=== PATIENT | female | born 2000 | race American Indian/Alaskan Native ===

== ENCOUNTER 2021-02-23 13:44 | Observation (INO) | payer MEDICAID ==
[2021-02-23] MEDS ORDERED: ACETAMINOPHEN 500 MG TAB PO ONE (14:01)
--- NOTE | 2021-02-23 14:04 | Emergency Department Report ---
ED Abdominal Pain HPI - General Chief Complaint: Abdominal Pain Stated Complaint: ABDOMINAL CRAMPS Time Seen by Provider: 02/23/21 13:54 Source: patient Mode of arrival: Ambulatory Limitations: No Limitations - History of Present Illness Initial Comments: 21-year-old female, , currently (unknown how far along) presents to ED with abdominal pain x3 days. Patient reports suprapubic pain x3 days. She denies any vomiting or diarrhea. She does report nausea. Patient reports fever last night. Patient reports urinary frequency and back pain. She denies any dysuria or vaginal discharge. Contrary to triage note, patient denies any vaginal bleeding. She denies any right lower quadrant pain. Patient denies any cough or shortness of breath. Patient does not currently have an RELATIONS SPECIALIST. MD Complaint: abdominal pain -: days(s) (3) Location: suprapubic Radiation: none Migration to: no migration Severity: moderate Severity scale (0 -10): 0 Quality: cramping Consistency: constant Improves With: nothing Worsens With: nothing Associated Symptoms: nausea, fever. denies: vomiting, diarrhea, dysuria - Related Data Previous Rx's Medication Instructions Recorded Last Taken Type Ciprofloxacin HCl [Cipro] 500 mg PO BID #20 tablet 07/27/13 08/02/13 20:00 Rx Ibuprofen [Motrin] 800 mg PO Q8H PRN #20 tablet 07/27/13 08/02/13 20:00 Rx Phenazopyridine [Pyridium] 200 mg PO TID #6 tablet 07/27/13 08/02/13 20:00 Rx Cefuroxime Oral Susp [Ceftin Oral 500 mg PO Q12H #14 ml 08/03/13 Unknown Rx Susp] Ibuprofen [Motrin] 400 mg PO Q8H PRN #12 tablet 08/03/13 Unknown Rx Allergies Allergy/AdvReac Type Severity Reaction Status Date / Time No Known Allergies Allergy Verified 08/03/13 15:56 ED Review of Systems ROS: Stated complaint: ABDOMINAL CRAMPS Other details as noted in HPI Comment: All other systems reviewed and negative Constitutional: fever Respiratory: denies: cough, shortness of breath Gastrointestinal: abdominal pain, nausea. denies: vomiting, diarrhea Genitourinary: frequency. denies: dysuria, discharge ED Past Medical Hx - Social History Smoking Status: Never Smoker Substance Use Type: None - Medications Home Medications: Home Medications Medication Instructions Recorded Confirmed Last Taken Type Ciprofloxacin HCl [Cipro] 500 mg PO BID #20 tablet 07/27/13 08/03/13 08/02/13 20:00 Rx Ibuprofen [Motrin] 800 mg PO Q8H PRN #20 tablet 07/27/13 08/03/13 08/02/13 20:00 Rx Phenazopyridine [Pyridium] 200 mg PO TID #6 tablet 07/27/13 08/03/13 08/02/13 20:00 Rx Cefuroxime Oral Susp [Ceftin Oral 500 mg PO Q12H #14 ml 08/03/13 Unknown Rx Susp] Ibuprofen [Motrin] 400 mg PO Q8H PRN #12 tablet 08/03/13 Unknown Rx ED Physical Exam - General Limitations: No Limitations General appearance: alert, in no apparent distress - Head Head exam: Present: atraumatic, normocephalic - Eye Eye exam: Present: normal appearance, EOMI - ENT ENT exam: Present: mucous membranes moist - Neck Neck exam: Present: normal inspection - Respiratory Respiratory exam: Present: normal lung sounds bilaterally. Absent: respiratory distress - Cardiovascular Cardiovascular Exam: Present: normal rhythm, tachycardia - GI/Abdominal GI/Abdominal exam: Present: soft, tenderness (Suprapubic; no right lower quadrant tenderness). Absent: distended - Extremities Exam Extremities exam: Present: normal inspection - Back Exam Back exam: Present: CVA tenderness (L). Absent: CVA tenderness (R) - Neurological Exam Neurological exam: Present: alert, oriented X3 - Psychiatric Psychiatric exam: Present: normal affect, normal mood - Skin Skin exam: Present: warm, dry, intact, normal color ED Course Vital Signs 02/23/21 02/23/21 02/23/21 13:44 13:56 15:17 Temperature 101 F H 101.1 F H Pulse Rate 128 H 116 H Respiratory 22 18 Rate Blood Pressure Blood Pressure 108/66 [Right] O2 Sat by Pulse 100 99 99 Oximetry 02/23/21 02/23/21 02/23/21 15:31 15:45 16:01 Temperature Pulse Rate Respiratory Rate Blood Pressure 101/64 101/64 101/64 Blood Pressure [Right] O2 Sat by Pulse 99 99 99 Oximetry 11/23/21 11/23/21 11/23/21 16:49 16:52 17:03 Temperature 98.2 F Pulse Rate 87 Respiratory Rate Blood Pressure 101/64 101/64 Blood Pressure [Right] O2 Sat by Pulse 80 L Oximetry 02/23/21 02/23/21 02/23/21 17:15 17:31 18:32 Temperature Pulse Rate Respiratory Rate Blood Pressure 101/64 101/64 Blood Pressure [Right] O2 Sat by Pulse 100 100 100 Oximetry - Consultations Consultation #1: 02/23/21 19:[address] Clarke, RELATIONS SPECIALIST, agrees to admit the patient ED Medical Decision Making - Lab Data Result diagrams: 02/23/21 14:00 02/23/21 14:00 - Radiology Data Radiology results: report reviewed, image reviewed - Medical Decision Making 20-year-old female, 15 weeks , presents to ED with urinary frequency, suprapubic pain, and back pain. Patient has left CVA tenderness present on exam. UA shows evidence of UTI. Patient does not have any right lower quadrant tenderness on exam. Fever and tachycardia has since resolved. Lactic acid was normal. Patient given IV Rocephin here in the ED. Patient will be admitted by Dr. Clarke, for further management. - Differential Diagnosis UTI, pyelonephritis, appendicitis Critical care attestation.: If time is entered above; I have spent that time in minutes in the direct care of this critically ill patient, excluding procedure time. ED Disposition Clinical Impression: Acute pyelonephritis, 15 weeks gestation of Disposition: ADMITTED INPATIENT Is pt being admited?: Yes Condition: Stable Instructions: Abdominal Pain (ED) Referrals: PRIMARY CARE, [Primary Care Provider] - 3-5 Days Time of Disposition: 19:00
[2021-02-23 14:30] LABS: Hematocrit 29.4 % (30.3-42.9); Hemoglobin 9.7 gm/dl (10.1-14.3); Mean Corpuscular HGB Conc 33 % (30-34); Mean Corpuscular Volume 79 fl (79-97); Platelet Count 348 K/mm3 (140-440); Red Blood Count 3.75 M/mm3 (3.65-5.03)
[2021-02-23 14:41] LABS: Alanine Aminotransferase 11 units/L (7-56); Albumin 3.4 g/dL (3.9-5); BUN/Creatinine Ratio 5; Blood Urea Nitrogen 4 mg/dL (7-17); Calcium 8.4 mg/dL (8.4-10.2); Hemolysis Index 0
[2021-02-23 14:51] LABS: Monocytes % (Auto) 13.9 % (0.0-7.3)
[2021-02-23] MEDS ORDERED: POTASSIUM CHLORIDE ER 20 MEQ TAB PO ONE (15:03)
[2021-02-23 15:08] LABS: Bacteria,Urine 1+ /HPF (Negative); Bilirubin,Urine NEG (Negative); Blood,Urine SM (Negative); Color,Urine Yellow (Yellow)
[2021-02-23] MEDS ORDERED: SODIUM CHLORIDE 0.9% 1000 ML 1,000 ML IV ONE (15:41)
[2021-02-23] MEDS ORDERED: cefTRIAXone/NS 1 GM/50 ML 1 GM/50 ML BAG IV ONE (15:41)
--- NOTE | 2021-02-23 18:16 | Ultrasound Report ---
ULTRASOUND OBSTETRIC INDICATION / CLINICAL INFORMATION: abd pain. Clinical Gestational Age (GA) in weeks.days: 13.3 TECHNIQUE: Transabdominal. COMPARISON: None available. FINDINGS: NUMBER: Single PRESENTATION: PLACENTA: posterofundal and free of the os. MATERNAL ADNEXA: No significant abnormality. AMNIOTIC FLUID VOLUME: normal ANATOMY: organs (including the bladder, stomach, kidneys, heart, umbilical cord, diaphragm, cord inserti on, spine and intracranial structures) are visualized in a limited fashion and show no significant ab normality. MEASUREMENTS: - Biparietal Diameter = 3.2 cm = 16.0 weeks.days - Head Circumference = 11.8 cm = 15.6 weeks.days - Abdominal Circumference = 9.6 cm = 15.5 weeks.days - Femur Length = 1.6 cm = 14.5 weeks.days - Estimated Weight (in grams, if calculated): Not calculated. - Heart Rate (beats per minute): 181 ADDITIONAL FINDINGS: Cervical length 3.7 cm. AVERAGE ULTRASOUND AGE (AUA) in weeks.days = 15.4 IMPRESSION: 1. Single intrauterine with AUA of 15.4 weeks.days 2. No gross abnormality at this time. Signer Name: Hossein Garrido MD Signed: 02/23/2021 6:12 PM Workstation Name: [facility]
[2021-02-23] MEDS ORDERED: SIMETHICONE 80 MG CHEW TAB PO PRN (23:31)
[2021-02-23] MEDS ORDERED: DOCUSATE SODIUM 100 MG CAP PO PRN (23:31)
[2021-02-23] MEDS ORDERED: ACETAMINOPHEN 325 MG TAB PO PRN ×2 (23:31→23:34)
[2021-02-23] MEDS ORDERED: KETOROLAC 30 MG/1 ML INJ IV ONE (23:34)
[2021-02-24] MEDS: cefTRIAXone/NS 1 GM/50 ML 1 GM/50 ML BAG IV SCH ×2 (04:58→16:37)
[2021-02-24] MEDS: SODIUM CHLORIDE 0.9% 1000 ML 1,000 ML IV SCH ×3 (05:16→22:22)
[2021-02-24] MEDS: PRENATAL VIT27-FE FUMARATE-FOLIC ACID VIT TAB PO SCH (11:02)
[2021-02-24] MEDS: HYDROcodone/ACETAMINOPHEN 5-325 MG TAB PO PRN ×2 (14:18→22:08)
[2021-02-24 14:37] LABS: Basophils % (Auto) 0.2 % (0.0-1.8); Eosinophils % (Auto) 0.1 % (0.0-4.3); Hematocrit 29.8 % (30.3-42.9); Hemoglobin 9.4 gm/dl (10.1-14.3); Lymphocytes # (Auto) 0.9 K/mm3 (1.2-5.4); Lymphocytes % (Auto) 7.4 % (13.4-35.0); Mean Corpuscular HGB Conc 32 % (30-34); Mean Corpuscular Volume 80 fl (79-97); Monocytes # (Auto) 1.7 K/mm3 (0.0-0.8); Monocytes % (Auto) 13.7 % (0.0-7.3); Platelet Count 355 K/mm3 (140-440); Red Blood Count 3.72 M/mm3 (3.65-5.03); Red Cell Distribution Width 16.4 % (13.2-15.2)
--- NOTE | 2021-02-24 16:23 | Progress Note ---
Assessment and Plan IUP at 15 weeks with pyleonephritis. Pt was admitted for IV antibiotics[place] [address] on admission. Repeat count today showed slight decrease. Will continue on antibiotics. Plan for discharge on tomorrow. Subjective - Subjective Date of service: 02/24/21 Principal diagnosis: IUP at 15 weeks, Pyleonephritis Interval history: Pt is a 20 year old who presents thru the ED with frequency, urgency, CVA tenderness and elevated white count. Pt was admitted for IV antiibotics. She has no complaints this morning although she complained of pain all over last night. Patient reports: appetite normal, voiding normally, pain well controlled, ambulating normally Objective - Vital Signs Latest vital signs: Vital Signs Temp Pulse Resp BP BP Pulse Ox 02/24/21 11:50 99.3 F 64 18 98/55 02/24/21 08:03 97.5 F L 77 18 92/56 100 02/24/21 03:26 97.2 F L 74 16 94/52 99 02/24/21 00:18 16 02/24/21 00:12 101.3 F H 102 H 16 96/54 99 02/23/21 23:57 16 02/23/21 23:00 16 99 02/23/21 19:46 97.8 F 94 H 20 109/68 100 02/23/21 19:24 100 02/23/21 18:32 100 02/23/21 17:31 101/64 100 02/23/21 17:15 101/64 100 02/23/21 17:03 101/64 80 L 02/23/21 16:52 98.2 F 87 02/23/21 16:49 101/64 Intake and Output 02/24/21 02/24/21 02/24/21 06:59 14:59 22:59 Intake Total 1240 Output Total 200 150 Balance -200 1090 Intake: IV 1000 NaCl 0.9% 1000 ml 1,000 1000 ml @ 125 mls/hr IV DIRECT [facility] Rx#:[id number] Oral 240 Output: Urine 200 150 Void 200 150 Other: Total, Intake Amount 240 Total, Output Amount 200 150 Voiding Method Toilet - Exam Breasts: Present: deferred Cardiovascular: Present: Regular rate, Normal S1, Normal S2 Lungs: Present: Clear to auscultation, Normal air movement Abdomen: Present: normal appearance, soft, normal bowel sounds Comments: minimal left CVA tenderness - Labs Labs: Abnormal lab results 02/24/21 Range/Units 14:04 WBC 12.3 H (4.5-11.0) K/mm3 Hgb 9.4 L (10.1-14.3) gm/dl Hct 29.8 L (30.3-42.9) % MCH 25 L (28-32) pg RDW 16.4 H (13.2-15.2) % Lymph % (Auto) 7.4 L (13.4-35.0) % [place] % (Auto) 13.7 H (0.0-7.3) % Lymph # (Auto) 0.9 L (1.2-5.4) K/mm3 [place] # (Auto) 1.7 H (0.0-0.8) K/mm3 Seg Neutrophils % 78.6 H (40.0-70.0) % Seg Neutrophils # 9.6 H (1.8-7.7) K/mm3
[2021-02-25] MEDS: cefTRIAXone/NS 1 GM/50 ML 1 GM/50 ML BAG IV SCH (04:20)
[2021-02-25] MEDS: SODIUM CHLORIDE 0.9% 1000 ML 1,000 ML IV SCH (07:29)
--- NOTE | 2021-02-25 09:28 | Progress Note ---
Assessment and Plan A: IUP at 15w6d Pyelonephritis s/p IV Rocephin, Cultures pending Pt request for discharge P: If temperature remains within range on repeat in one hour, pt will be discharged home with antibiotics and follow up on Monday with Dr Clarke. Subjective - Subjective Date of service: 02/25/21 Principal diagnosis: IUP at 15 weeks, Pyleonephritis Interval history: Pt feels well overnight. Temp 100.3 recorded, but pt reports she was under several blankets at that time. Repeat temp 98.8 without administration of antipyretics. She reports her CVA tenderness has resolved and she is hoping to go home today. Patient reports: no new complaints, no vaginal bleeding Objective - Vital Signs Vital Signs: Vital Signs - 12hr 02/24/21 02/25/21 02/25/21 22:08 00:28 04:50 Temperature 98.8 F 98.5 F Pulse Rate 99 H 85 Respiratory 18 16 20 Rate Blood Pressure 93/47 91/55 O2 Sat by Pulse 96 92 Oximetry 02/25/21 02/25/21 02/25/21 07:30 08:30 08:50 Temperature 100.3 F H 98.8 F Pulse Rate 106 H 100 H Respiratory 20 Rate Blood Pressure 88/50 O2 Sat by Pulse 98 97 Oximetry - Exam Breasts: deferred Abdomen: Present: soft, other (No back tenderness) Extremities: normal - Labs Labs: Abnormal Labs 02/23/21 02/23/21 02/23/21 14:00 14:00 14:10 WBC 14.5 H Hgb 9.7 L Hct 29.4 L MCH 26 L RDW 16.0 H Lymph % (Auto) [place] % (Auto) 13.9 H Lymph # (Auto) [place] # (Auto) 2.0 H Seg Neutrophils % 77.7 H Seg Neutrophils # 11.4 H Sodium 131 L Potassium 2.9 L* Chloride 94.8 L Carbon Dioxide 18 L BUN 4 L Glucose 122 H POC Glucose Albumin 3.4 L HCG, Quant 00469 H Urine WBC (Auto) 02/23/21 02/24/21 02/25/21 Unknown 14:04 08:39 WBC 12.3 H Hgb 9.4 L Hct 29.8 L MCH 25 L RDW 16.4 H Lymph % (Auto) 7.4 L [place] % (Auto) 13.7 H Lymph # (Auto) 0.9 L [place] # (Auto) 1.7 H Seg Neutrophils % 78.6 H Seg Neutrophils # 9.6 H Sodium Potassium Chloride Carbon Dioxide BUN Glucose POC Glucose 114 H Albumin HCG, Quant Urine WBC (Auto) 78.0 H Laboratory Results - last 24 hr 02/24/21 02/24/21 02/25/21 09:40 14:04 08:39 WBC 12.3 H RBC 3.72 Hgb 9.4 L Hct 29.8 L MCV 80 MCH 25 L MCHC 32 RDW 16.4 H Plt Count 355 Lymph % (Auto) 7.4 L [place] % (Auto) 13.7 H Eos % (Auto) 0.1 Baso % (Auto) 0.2 Lymph # (Auto) 0.9 L [place] # (Auto) 1.7 H Eos # (Auto) 0.0 Baso # (Auto) 0.0 Seg Neutrophils % 78.6 H Seg Neutrophils # 9.6 H POC Glucose 114 H Coronavirus (PCR) Negative
[2021-02-25] MEDS: PRENATAL VIT27-FE FUMARATE-FOLIC ACID VIT TAB PO SCH (09:35)
--- NOTE | 2021-02-25 09:45 | Discharge Summary ---
Providers - Providers Date of Admission: 02/23/21 19:00 Date of discharge: 02/25/21 Attending physician: ANDRZEJ FISHER Primary care physician: SHE[employer] PATTERN CUTTER Hospitalization Reason for admission: other (IUP at 15w6d, Pyelonephritis ) Procedure details: IV antibiotics OB Ultrasound Discharge diagnosis: other (IUP at 15 wks, pyelonephritis ) Hospital course: This patient was admitted for inpatient management of pyelonephritis at 15 wks with IV Rocephin. On HD#2 she was clinically improved and met discharge criteria. She will follow within [address] Fisher. She is aware that once the sensitivities return on her urine culture her antibiotic regimen may need to change. Condition at discharge: Stable Disposition: 01 HOME / SELF CARE / HOMELESS - Discharge Diagnoses (1) 15 weeks gestation of Status: Acute (2) Acute pyelonephritis Status: Acute Plan - Discharge Medications Prescriptions: Amoxicillin/Potassium Clav [Augmentin 875-125 Tablet] 1 each PO BID #20 tablet - Provider Discharge Summary Activity: routine Diet: routine Instructions: routine Additional instructions: [] Smoking cessation referral if applicable(refer to patient education folder for contact #) [] Refer to [facility]'s [facility] Booklet Call your doctor immediately for: * Fever > 100.5 * Heavy vaginal bleeding ( >1 pad per hour) * Severe persistent headache * Shortness of breath * Reddened, hot, painful area to leg or breast * Drainage or odor from incision. * Keep incision clean and dry at all times and follow doctor's instructions regarding bathing/showering - Follow up plan Follow up: ARMAND LACEY MD [Primary Care Provider] - 3-5 Days ANDRZEJ FISHER MD [Staff Physician] - 7 Days
[2021-02-25 10:33] VITALS: BP 89/50
== END 2021-02-25 11:15 | disposition home or self-care (01) ==
LOC: ED 13:44 → OB 19:00
PROVIDERS: ADMIT Obstetrics & Gynecology; ATTEND Obstetrics & Gynecology
DX: O23.02 Infections of kidney in pregnancy, second trimester (principal); Z20.822 Contact with and (suspected) exposure to COVID-19; N10 Acute pyelonephritis; O26.892 Other specified pregnancy related conditions, second trimester; R10.30 Lower abdominal pain, unspecified; Z3A.15 15 weeks gestation of pregnancy; Z79.899 Other long term (current) drug therapy; Z98.890 Other specified postprocedural states
CPT/HCPCS: 36415; 76805; 80053; 81001; 82140; 82962; 84702; 85025; 87040; 87086; 96365; 96366; 96375; 99284; G0378; J0696; J1885; J7030; U0003; 85007; Q0162

== ENCOUNTER 2021-08-29 13:01 | Emergency (ER) | payer MEDICAID ==
[2021-08-29 13:16] VITALS: BP 107/75
== END 2021-08-29 19:00 | disposition left against medical advice (07) ==
LOC: ED 13:01
DX: R51.9 Headache, unspecified (principal); R42 Dizziness and giddiness; Z53.21 Procedure and treatment not carried out due to patient leaving prior to being seen by health care provider
CPT/HCPCS: 93005

== ENCOUNTER 2021-08-30 00:22 | Emergency (ER) | payer MEDICAID ==
[2021-08-30] MEDS ORDERED: diphenhydrAMINE 50 MG/ML VIAL IV ONE (00:44)
[2021-08-30] MEDS ORDERED: SODIUM CHLORIDE 0.9% 1000 ML 1,000 ML IV ONE ×2 (00:44→02:43)
[2021-08-30] MEDS ORDERED: FAMOTIDINE 20 MG/2 ML INJ IV ONE (00:44)
[2021-08-30] MEDS ORDERED: METOCLOPRAMIDE 10 MG/2 ML INJ IV ONE (00:44)
[2021-08-30 02:15] LABS: Hematocrit 31.2 % (30.3-42.9); Hemoglobin 9.8 gm/dl (10.1-14.3); Mean Corpuscular HGB Conc 31 % (30-34); Mean Corpuscular Volume 70 fl (79-97); Platelet Count 164 K/mm3 (140-440); Red Blood Count 4.45 M/mm3 (3.65-5.03)
[2021-08-30 02:26] LABS: Bacteria,Urine 2+ /HPF (Negative); Bilirubin,Urine NEG (Negative); Blood,Urine SM (Negative); Color,Urine Yellow (Yellow); Mucus,Urine FEW /HPF
[2021-08-30 02:27] LABS: Protein,Urine >500 mg/dL (Negative); WBC,Urine > 182.0 /HPF (0.0-6.0)
[2021-08-30 02:27] LABS: Red Cell Distribution Width 26.6 % (13.2-15.2)
[2021-08-30 02:36] LABS: Albumin 3.6 g/dL (3.9-5); Calcium 8.6 mg/dL (8.4-10.2)
[2021-08-30] MEDS ORDERED: cefTRIAXone/NS 1 GM/50 ML 1 GM/50 ML BAG IV ONE (02:43)
[2021-08-30] MEDS ORDERED: POTASSIUM CHLORIDE ER 20 MEQ TAB PO ONE (02:44)
[2021-08-30 03:10] LABS: Anisocytosis 3+; Band Neutrophils # (Manual) 3.1 K/mm3; Basophils % (Manual) 0 % (0.0-1.8); Hypochromasia 1+; Poikilocytosis 1+; Total Cells Counted 100
[2021-08-30 03:11] LABS: Spherocytes 1+; Tear Drop Cells 1+
[2021-08-30 03:12] LABS: Platelet Estimate Consistent w Auto; Target Cells Few
--- NOTE | 2021-08-30 03:38 | Emergency Department Report ---
ED N/V/D HPI - General Chief complaint: Dizziness Stated complaint: FEVER,DIZZY,VOMITING Source: patient Mode of arrival: Ambulatory Limitations: No Limitations - History of Present Illness Initial comments: Patient is a A0 21-year-old -Filipino female who is 1 month p ostpartum and who presents to the ED with complaint of acute onset persistent intractable nausea and vomiting, lightheadedness and generalized weakness for the last 2 days. Patient states that she has had multiple vomiting episodes in the last 12 hours. Patient states that she has not been able to keep anything down since the onset of the symptoms. Patient states that no one else at home is had similar symptoms. Patient denies fever, chills, diarrhea, abdominal pain, chest pain, shortness of breath, cough, sore throat, dysuria, urinary frequency and urgency, vaginal bleeding, vaginal discharge or back pain. MD complaint: nausea, vomiting, other (Lightheadedness, generalized weakness) -: days(s) (2) Description of Vomiting: food contents, watery, bilious Associated Abdominal Pain: No Location: diffuse Radiation: none Severity: severe Pain Scale: 7 Consistency: intermittent Improves with: none Worsens with: eating, vomiting Context: possible food poisoning Associated Symptoms: denies other symptoms, myalgias, loss of appetite, malaise, nausea/vomiting, weakness. denies: chest pain, cough, diaphoresis, fever/chills, headaches, rash, dysuria, shortness of breath, syncope - Related Data Previous Rx's Medication Instructions Recorded Last Taken Type Docusate Sodium [Colace] 100 mg PO BID PRN #60 capsule 07/26/21 Unknown Rx Ferrous Sulfate [Feosol 325 MG tab] 325 mg PO QDAY #60 tablet 07/26/21 Unknown Rx Ibuprofen [Motrin 800 MG tab] 800 mg PO Q8HR PRN #30 tablet 07/26/21 Unknown Rx oxyCODONE /ACETAMINOPHEN [Percocet 1 tab PO Q4HR #30 tab 07/26/21 Unknown Rx 5/325] Acetaminophen [Tylenol] 500 mg PO Q6HR PRN #30 tablet 08/30/21 Unknown Rx Famotidine [Pepcid] 20 mg PO Q12H #60 tablet 08/30/21 Unknown Rx Ondansetron [Zofran Odt] 4 mg PO Q6HR PRN #20 tab.rapdis 08/30/21 Unknown Rx Potassium Chloride [Klor-Con M20] 20 meq PO Q12H #10 08/30/21 Unknown Rx cephALEXin [Keflex] 500 mg PO Q6HR #40 capsule 08/30/21 Unknown Rx Allergies Allergy/AdvReac Type Severity Reaction Status Date / Time No Known Allergies Allergy Verified 07/23/21 11:07 ED Review of Systems ROS: Stated complaint: FEVER,DIZZY,VOMITING Other details as noted in HPI Constitutional: malaise, weakness. denies: chills, fever Eyes: denies: eye pain, eye discharge, vision change ENT: denies: ear pain, throat pain Respiratory: denies: cough, shortness of breath, wheezing Cardiovascular: denies: chest pain, palpitations Endocrine: no symptoms reported Gastrointestinal: nausea, vomiting. denies: diarrhea, constipation, hematochezia Genitourinary: denies: urgency, dysuria, discharge Musculoskeletal: myalgia. 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 - Surgical History Additional Surgical History: - Social History Smoking Status: Never Smoker Substance Use Type: None - Medications Home Medications: Home Medications Medication Instructions Recorded Confirmed Last Taken Type Docusate Sodium [Colace] 100 mg PO BID PRN #60 capsule 07/26/21 Unknown Rx Ferrous Sulfate [Feosol 325 MG tab] 325 mg PO QDAY #60 tablet 07/26/21 Unknown Rx Ibuprofen [Motrin 800 MG tab] 800 mg PO Q8HR PRN #30 tablet 07/26/21 Unknown Rx oxyCODONE /ACETAMINOPHEN [Percocet 1 tab PO Q4HR #30 tab 07/26/21 Unknown Rx 5/325] Acetaminophen [Tylenol] 500 mg PO Q6HR PRN #30 tablet 08/30/21 Unknown Rx Famotidine [Pepcid] 20 mg PO Q12H #60 tablet 08/30/21 Unknown Rx Ondansetron [Zofran Odt] 4 mg PO Q6HR PRN #20 tab.rapdis 08/30/21 Unknown Rx Potassium Chloride [Klor-Con M20] 20 meq PO Q12H #10 08/30/21 Unknown Rx cephALEXin [Keflex] 500 mg PO Q6HR #40 capsule 08/30/21 Unknown Rx ED Physical Exam - General Limitations: No Limitations General appearance: alert, in no apparent distress - Head Head exam: Present: atraumatic, normocephalic, normal inspection - Eye Eye exam: Present: normal appearance, PERRL, EOMI Pupils: Present: normal accommodation - ENT ENT exam: Present: normal exam, normal orophraynx, mucous membranes moist, TM's normal bilaterally, normal external ear exam - Neck Neck exam: Present: normal inspection, full ROM. Absent: tenderness, lymphadenopathy - Respiratory Respiratory exam: Present: normal lung sounds bilaterally. Absent: respiratory distress, wheezes, stridor, chest wall tenderness, accessory muscle use, decreased breath sounds, prolonged expiratory - Cardiovascular Cardiovascular Exam: Present: normal rhythm, tachycardia, normal heart sounds. Absent: systolic murmur, diastolic murmur, rubs, gallop - GI/Abdominal GI/Abdominal exam: Present: soft, normal bowel sounds. Absent: tenderness, guarding, rebound, hyperactive bowel sounds, hypoactive bowel sounds, organomegaly - Extremities Exam Extremities exam: Present: normal inspection, full ROM, normal capillary refill. Absent: tenderness - Back Exam Back exam: Present: normal inspection, full ROM. Absent: tenderness, CVA tenderness (R), CVA tenderness (L), muscle spasm, paraspinal tenderness, vertebral tenderness - Neurological Exam Neurological exam: Present: alert, oriented X3, CN II-XII intact, normal gait, reflexes normal - Psychiatric Psychiatric exam: Present: normal affect, normal mood - Skin Skin exam: Present: warm, dry, intact, normal color. Absent: rash ED Course Vital Signs 08/30/21 08/30/21 08/30/21 00:27 00:59 02:31 Temperature 98.5 F Pulse Rate 140 H 113 H Respiratory 18 18 Rate Blood Pressure 102/48 Blood Pressure 116/73 [Right] O2 Sat by Pulse 98 99 10 L Oximetry ED Medical Decision Making - Lab Data Result diagrams: 08/30/21 00:56 08/30/21 00:56 - Medical Decision Making This is a A0 21-year-old -Filipino female who is 1 month and who presents to the ED with complaint of acute onset persistent intractable nausea and vomiting, lightheadedness and generalized weakness for the last 2 days. Patient states that she has had multiple vomiting episodes in the last 12 hours. Patient states that she has not been able to keep anything down since t he onset of the symptoms. Patient states that no one else at home is had similar symptoms. In the ED, patient is alert and oriented x3 and is not in any distress. Patient is tachycardic but afebrile in triage. Patient was treated for nausea and vomiting, also given antacids, in addition to normal saline 2 L IV bolus. Lab test results were reviewed and showed acute leukocytosis of 18,100, acute hyponatremia of 132 mmol/L, acute hypokalemia of 3.0 mmol/L, and creatinine of 1.5. Urinalysis showed significant urinary tract infection characterized by positive nitrite, large leukocyte Estrace and > 182 WBCs. Patient was treated in the ED also with Rocephin 1 g IV x1. On reevaluation, patient passed oral fluid challenge in the ED, patient's tachycardia resolved in the ED. Patient was discharged home on antiemetics, antacids as well as antibiotics for urinary tract infection. Patient was advised to maintain a clear liquid diet for 12 to 24 hours, drink plenty of fluids and take medic ations and to follow-up with her IMPROVEMENT DIRECTOR physician or primary care physician in 7 to 10 days for reevaluation. Patient is advised to return to the ED immediately if symptoms get worse. Critical care attestation.: If time is entered above; I have spent that time in minutes in the direct care of this critically ill patient, excluding procedure time. ED Disposition Clinical Impression: Nausea and vomiting in adult patient, Acute urinary tract infection, Acute hypokalemia, Dehydration with hyponatremia Disposition: HOME / SELF CARE / HOMELESS Is pt being admited?: No Does the pt Need Aspirin: No Condition: Stable Instructions: Nausea and Vomiting, Adult, [id number], Urinary Tract Infection, Adult, [id number], Hypokalemia Additional Instructions: All lab test results were reviewed and showed acute leukocytosis of 18,100 acute hyponatremia of 132 mmol/L, acute hypokalemia of 3.0 mmol/L, and creatinine of 1.5 significant for dehydration. Urinalysis showed significant urinary tract infection. You have been treated empirically in the ED for acute urinary tract infection and also given IV fluids to replenish with dehydration. Therefore maintain a clear liquid diet for 12 to 24 hours, take medications with food, drink plenty of fluids, follow-up with your primary care physician in 7 to 10 days for reevaluation or return to the ED immediately if your symptoms get worse. Prescriptions: Acetaminophen [Tylenol] 500 mg PO Q6HR PRN #30 tablet PRN Reason: Pain , Severe (7-10) cephALEXin [Keflex] 500 mg PO Q6HR #40 capsule Potassium Chloride [Klor-Con M20] 20 meq PO Q12H #10 Famotidine [Pepcid] 20 mg PO Q12H #60 tablet Ondansetron [Zofran Odt] 4 mg PO Q6HR PRN #20 tab.rapdis PRN Reason: Nausea Referrals: [facility] [Provider Group] - 3-5 Days Time of Disposition: 04:07 Print Language: EGYPTIAN
[2021-08-30 05:35] VITALS: BP 110/85
== END 2021-08-30 04:40 | disposition home or self-care (01) ==
LOC: ED 00:22
DX: N39.0 Urinary tract infection, site not specified (principal); R11.2 Nausea with vomiting, unspecified; E87.6 Hypokalemia; E86.0 Dehydration; Z79.899 Other long term (current) drug therapy
CPT/HCPCS: 36415; 80053; 81001; 83690; 84703; 85007; 85025; 96361; 96365; 96375; 99283; J0696; J1200; J2765; J3490; J7030